=== PATIENT | female | born 1995 | race Caucasian/White ===

== ENCOUNTER 2017-06-07 13:17 | Emergency (ER) | payer OTHER ==
[~2017-06-07] VITALS: Ht 177.8 cm; Wt 78.2 kg
[2017-06-07 13:24] VITALS: BP 125/84
== END 2017-06-07 14:30 | disposition home or self-care (01) ==
LOC: ED 14:22
DX: K12.0 Recurrent oral aphthae (principal)
CPT/HCPCS: 99283